=== PATIENT | female | born 1960 | race Caucasian/White ===

== ENCOUNTER → 2017-01-01 | Outpatient (CLI) | payer BC | LOC: MC.RAD 10:24 | DX: Z12.31 Encounter for screening mammogram for malignant neoplasm of breast (principal) ==

== ENCOUNTER → 2019-06-15 | Outpatient (CLI) | payer BC | LOC: MC.RAD 11:31 | DX: Z12.31 Encounter for screening mammogram for malignant neoplasm of breast (principal) ==